=== PATIENT | male | born 1995 | race Caucasian/White ===

== ENCOUNTER 2016-05-06 05:30 | Emergency (ER) | payer BC ==
[~2016-05-06] VITALS: Ht 177.8 cm; Wt 63.5 kg
[2016-05-06] MEDS ORDERED: HYDROCODON-ACET15 ML PO (05:40)
[2016-05-06] MEDS ORDERED: TRIMOX,POL250 MG/5 M PO (05:41)
[2016-05-06 06:24] LABS: HEMATOCRIT 41.1 % (42.0-52.0); HEMOGLOBIN 13.6 g/dl (14.0-18.0)
[2016-05-06 06:32] LABS: PROTHROMBIN TIME 10.6 SECONDS (9.0-12.4)
[2016-05-06 06:35] LABS: BUN 7 mg/dl (7-24); CARBON DIOXIDE 26 mmol/L (21-32); CHLORIDE 107 mmol/L (98-107); EST GLOM FILT AFRICAN AMERICAN > 60 ml/min; GLUCOSE 104 mg/dL (65-99); POTASSIUM 3.9 mmol/L (3.5-5.1); SODIUM 141 mmol/L (136-145)
== END 2016-05-06 06:53 | disposition home or self-care (01) ==
LOC: ED 05:30
PROVIDERS: Emergency Medicine Emergency Medical Services
DX: J95.830 Postprocedural hemorrhage of a respiratory system organ or structure following a respiratory system procedure (principal)